=== PATIENT | female | born 1970 | race Caucasian/White ===

== ENCOUNTER 2021-06-09 20:03 | Emergency (ER) | payer OTHER ==
[~2021-06-09] VITALS: Ht 155 cm; Wt 80.7 kg
--- NOTE | 2021-06-09 20:14 | ED Fall/Injury ---
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 This happened about 30 minutes prior she landed on her right hip and hit the right occipital part of her back. She says her shoulder is no longer hurting her. Her head is all that gone. No loss of consciousness. No nausea or vomiting. She is having pain radiating down her right buttock down the back of her leg which she refers to as her hip. She is not having any difficulty with ambulation. No prior history of back pain dominguez rgeries or work-up. No history of sciatica. She says she only has a history of fibromyalgia. She has not taken anything for the pain yet. She rates it as a 7 out of 10 Allergies and Home Medications Allergies Coded Allergies: No Known Drug Allergies (Unverified , 06/09/21) Patient Home Medication List Home Medication List Reviewed: Yes Review of Systems Review of Systems Constitutional: No chills, No diaphoresis Eyes: Denies Blindness, Denies Drainage Ears, Nose, Mouth, Throat: denies ear pain, denies ear discharge Respiratory: No cough, No short of breath Cardiovascular: No chest pain, No palpitations Gastrointestinal: No abdominal pain, No constipation, No diarrhea, No nausea Genitourinary: No discharge, No dysuria Musculoskeletal: back pain, joint pain All Other Systems Reviewed Negative Unless Noted: Yes Past Q[place]-Lomggh Hx Patient Social History Tobacco Use?: No Use of E-Cig and/or Vaping dev: No Substance use?: No Physical Exam Vital Signs Capillary Refill : Height, Weight, BMI Height: '" Weight: lbs. oz. kg; BMI Method: General Appearance: WD/WN, mild distress HEENT: PERRL/EOMI, normal ENT inspection, TMs normal, pharynx normal, other (Negative for raccoon eyes, zheng sign or hemotympanum. No hematoma palpable over the right occipital scalp. Minimal tenderness to palpation.) Neck: non-tender, full range of motion, supple, normal inspection Cardiovascular: normal peripheral pulses, regular rate, rhythm Respiratory: no respiratory distress, no accessory muscle use Peripheral Pulses: 2+ Dorsalis Pedis (R), 2+ Left Dors-Pedis (L), 2+ Radial Pulses (R), 2+ Radial Pulses (L) Gastrointestinal: non tender, soft Back: muscle spasm, vertebral tenderness (Midline lower lumbar and sacral spine), other (Paravertebral muscle spasms and tenderness recreating her right sciatic symptoms greater than left.) Extremities: normal range of motion, normal inspection, normal capillary refill, other (No tenderness over the right groin, greater trochanter of the right femur.) Neurologic/Psychiatric: hand stripper II-XII nml as tested, no motor/sensory deficits, alert, normal mood/affect, oriented x 3 Skin: normal color, warm/dry [place] Coma Score Best Eye Response: (4) Open Spontaneously Best Verbal Response: (5) Oriented Best Motor Response: (6) Obeys Commands Elke Total: 15 Progress/Results/Core Measures Results/Orders My Orders Orders - JOSE CRUZ HUNG Lumbar Spine - 2-3 Views (06/09/21 20:08) Progress Progress Note : Time: 20:13 Progress Note Plain film lumbar spine. If this is okay we will give her a shot of Toradol, Norflex and send her home with some muscle relaxants and instructions to follow- up with primary care if not seeing spontaneous improvement in 1 to 2 weeks. Patient is okay with this plan. Closed head injury observation. Diagnostic Imaging Diagonstic Imaging: Xray Plain Films/CT/US/NM/MRI: other (Lumbar spine) Comments [facility], [place] NAME: DREW WRIGHT [facility] REC#: [id number] PT STATUS: REG ER : 1970 PHYSICIAN: JOSE CRUZ HUNG MD ADMIT DATE: 06/09/21/ER Signed Date of Exam:06/09/21 LUMBAR SPINE - 2-3 VIEWS INDICATION: Low back pain. EXAMINATION: Lumbar spine. FINDINGS: AP and lateral views of the lumbar spine show normal vertebral body height and alignment. There is advanced degenerative disc changes at L5-S1 with Modic changes of the opposing vertebral body endplates and vacuum disc phenomena. IMPRESSION: Degenerative disc changes at L5-S1. No acute abnormality is seen. Dictated by: Dictated on workstation # [id number] Dict: 06/09/212019 Trans: 06/09/212027 [facility] [id number] Interpreted by: SHEFALI GEORGE MD Electronically signed by: SHEFALI GEORGE MD 06/09/212027 Reviewed: Reviewed by Me Departure Impression Primary Impression: Fall Qualified Codes: W19.XXXA - Unspecified fall, initial encounter Additional Impression: Back pain of lumbosacral region with sciatica Disposition: HOME, SELF-CARE Condition: Stable Departure-Patient Inst. Decision time for Depature: 20:42 Patient Instructions: Low Back Pain (DC), Sciatica ED Add. 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 You also have muscle spasms in your low back trying to protect this pinched nerve. Typically the symptoms will resolve on their own over a couple weeks. Ice applied to your low back 20 minutes on every 2 hours for the first 2 days can be helpful to reduce swelling and pain. Topical creams such as icy hot or Biofreeze are recommended. Lidoderm patches are available. After the first 2 days then just heat is recommended for your low back pain. Tylenol 1000 mg every 8 hours as necessary for pain. Ibuprofen 800 mg every 8 hours as necessary for low back pain. Cyclobenzaprine/Flexeril 1 tablet every 8 hours as necessary to release the muscle spasms in your back. Cyclobenzaprine will cause drowsiness. Do not mix with alcohol, long road trips, operating heavy machinery etc. If you are not seeing improvement in 1 to 2 weeks then you can call your primary care doctor for follow-up. If you would like to be seen by physical therapy to help you manage your symptoms that are persistent then you may call [facility] physical therapy at [phone] and request a no upfront cost evaluation. Scripts Cyclobenzaprine HCl (Cyclobenzaprine HCl) 10 Mg Tablet 10 MG PO Q8H PRN for SPASMS, #15 TAB 0 Refills Prov: JOSE CRUZ HUNG 06/09/21 Work/School Note: Work Release Form Date Seen in the Emergency Department: Jun 09, 2021 Return to Work: Jun 11, 2021 Restrictions: Need Release from Doctor Other Restrictions Listed Below: Do not lift, push or pull more than 20# until 06/23/2021. JOSE CRUZ HUNG J Jun 09, 2021 20:14
--- NOTE | 2021-06-09 20:22 | Diagnostic Imaging Report ---
INDICATION: Low back pain. EXAMINATION: Lumbar spine. FINDINGS: AP and lateral views of the lumbar spine show normal vertebral body height and alignment. There is advanced degenerative disc changes at L5-S1 with Modic changes of the opposing vertebral body endplates and vacuum disc phenomena. IMPRESSION: Degenerative disc changes at L5-S1. No acute abnormality is seen. Dictated by: Dictated on workstation # [id number]
[2021-06-09] MEDS ORDERED: ORPHENADRINE 60 MG/2 ML (NORFLEX) AMP (ED ONLY) IM ONE (20:45)
[2021-06-09] MEDS ORDERED: KETOROLAC 60 MG/2 ML VIAL IM ONE (20:45)
[2021-06-09] MEDS ORDERED: CYCL10TA25 PO (20:51)
[2021-06-09 21:37] VITALS: BP 121/79
== END 2021-06-09 21:37 | disposition home or self-care (01) ==
LOC: ER 20:06
DX: M54.41 Lumbago with sciatica, right side (principal)
CPT/HCPCS: 72100